=== PATIENT | male | born 1975 | race Two or more races ===

== ENCOUNTER 2022-07-05 21:43 | Emergency (ER) | payer OTHER ==
[~2022-07-05] VITALS: Ht 170.2 cm; Wt 97.5 kg
[2022-07-05 21:50] VITALS: BP 122/69
== END 2022-07-06 02:22 | disposition home or self-care (01) ==
LOC: EDBD 21:43 → ER 21:46
DX: S81.811A Laceration without foreign body, right lower leg, initial encounter (principal); W25.XXXA Contact with sharp glass, initial encounter; Y93.89 Activity, other specified; Y92.89 Other specified places as the place of occurrence of the external cause; Y99.8 Other external cause status
CPT/HCPCS: 12004; 73590

== ENCOUNTER 2024-05-21 17:32 | Emergency (ER) | payer OTHER ==
[~2024-05-21] VITALS: Ht 172.7 cm; Wt 55.0 kg
[2024-05-21 18:15] VITALS: BP 115/70; PULSE 80; RESP 16; O2SAT 97
[2024-05-21 18:34] LABS: Hematocrit 34.7 % (41.0-53.0); Red Cell Distribution Width 15.7 % (11.8-14.3)
[2024-05-21 18:37] LABS: Hemoglobin 11.9 g/dL (13.5-17.5); Mean Corpuscular Hemoglobin 32.4 pg (28.0-32.0); Mean Corpuscular Hgb Conc. 34.2 g/dL (32.0-36.0); Mean Corpuscular Volume 94.7 fL (80.0-100.0); Red Blood Cells 3.66 10^6/uL (4.5-5.90); White Blood Cell 2.5 10^3/uL (4.4-10.8)
[2024-05-21 18:38] LABS: Band Neutrophils % (manual) 0; Basophils % (manual) 0 (0.0-2.0); Blast Cells 0; Eosinophils % (manual) 0 (0-7); Metamyelocytes % 0; Myelocytes % 0; Promyelocytes % 0; Reactive Lymphocytes 0
[2024-05-21 18:52] LABS: Alanine Aminotransferase 45 U/L (7-40); Albumin 2.9 g/dL (3.2-4.8); Alkaline Phosphatase 218 U/L (46-116); Anion Gap 8 (5-15); Aspartate Aminotransferase 90 U/L (13-40); BUN/Creatinine Ratio 9.4 (10.0-20.0); Bilirubin, Total 6.8 mg/dL (0.2-1.0); Blood Urea Nitrogen 6 mg/dL (9-23); Calcium 8.2 mg/dL (8.5-10.1); Carbon Dioxide 23 mmol/L (20-30); Chloride 110 mmol/L (98-107); Glucose 106 mg/dL (74-106); Potassium 3.6 mmol/L (3.5-5.1); Sodium 141 mmol/L (136-145); Total Protein 6.8 g/dL (5.7-8.2)
[2024-05-21 18:59] LABS: Blood Alcohol 307.7 mg/dL (<10)
[2024-05-21 19:02] LABS: INR 1.49 (0.9-1.15); Partial Thromboplastin Time 33.8 SEC (24.5-34.5); Prothrombin Time 15.3 sec (9.3-11.8)
[2024-05-21 20:16] LABS: Lymphocytes % (manual) 57 (10.0-50.0); Monocytes % (manual) 11 (0-12); Platelet Estimate Decreased
== END 2024-05-21 20:56 | disposition left against medical advice (07) ==
LOC: EDBD 17:32 → ER 17:32
DX: K70.30 Alcoholic cirrhosis of liver without ascites (principal); E80.6 Other disorders of bilirubin metabolism; R74.01 Elevation of levels of liver transaminase levels; R07.9 Chest pain, unspecified
CPT/HCPCS: 36415; 80053; 80320; 82140; 84484; 85007; 85027; 85610; 85730; 93005